=== PATIENT | female | born 1985 | race Caucasian/White ===

== ENCOUNTER 2020-06-16 09:11 | Emergency (ER) | payer OTHER ==
[~2020-06-16] VITALS: Ht 167.6 cm; Wt 65.0 kg
[~2020-06-16 09:11] MED LIST: IBUP80TA PO; PRE-TAB3 PO; TYLE650T30 PO
[2020-06-16] MEDS ORDERED: TRAM50TA2 PO (10:04)
--- NOTE | 2020-06-16 10:07 | REP ---
INDICATION: CHEST PAIN. COMPARISON: Frontal view of 02/09/2009 FINDINGS: The technique utilized in obtaining the radiograph has magnified the cardiac silhouette and accentuated the interstitial markings. The superior mediastinal structures are midline. The cardiac silhouette is unremarkable in size, shape, and position. The diaphragmatic surfaces of the lungs are regular, and the costophrenic angles are clear. The pulmonary kc are clear. The imaged osseous structures are intact. IMPRESSION: There is no acute cardiopulmonary disease. <Electronically signed by Adan Padilla > 06/16/20 [id number]
[2020-06-16 10:21] LABS: BASO # 0.1 10^3/uL (0.0-0.2); EOS # 0.1 10^3/uL (0.0-0.5); EOS % 1.6 % (0.0-3.0); HEMATOCRIT 43.9 % (36.0-47.0); HEMOGLOBIN 14.4 g/dl (12.0-15.5); LYMPH # 2.2 10^3/uL (1.5-5.0); MEAN CORPUSCULAR HEMOGLOBIN 32.8 pg (27.0-33.0); MEAN CORPUSCULAR HGB CONC 32.8 g/dl (32.0-36.5); MONO # 0.7 10^3/uL (0.0-0.8); MONO % 10.6 % (0.0-5.0); NEUTROPHILS # 3.8 10^3/uL (1.5-8.5); NEUTROPHILS % 54.4 % (36.0-66.0); PLATELET COUNT, AUTOMATED 212 10^3/uL (150-450); RED BLOOD COUNT 4.39 10^6/uL (4.00-5.40)
[2020-06-16 10:43] LABS: BLOOD UREA NITROGEN 10 MG/DL (7-18); CALCIUM LEVEL 9.3 MG/DL (8.5-10.1); CARBON DIOXIDE LEVEL 23 MEQ/L (21-32); CHLORIDE LEVEL 108 MEQ/L (98-107); CREATININE FOR GFR 0.68 MG/DL (0.55-1.30); GLOMERULAR FILTRATION RATE > 60.0 (>60); GLUCOSE, FASTING 88 MG/DL (70-100); POTASSIUM SERUM 4.3 MEQ/L (3.5-5.1); SODIUM LEVEL 138 MEQ/L (136-145)
[2020-06-16 11:10] LABS: MAGNESIUM LEVEL 1.9 MG/DL (1.8-2.4)
[2020-06-16 11:41] VITALS: BP 117/79
--- NOTE | 2020-06-17 10:12 | ECGEPIP ---
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
== END 2020-06-16 11:44 | disposition home or self-care (01) ==
LOC: M ED 09:11
DX: I49.9 Cardiac arrhythmia, unspecified (principal); F17.200 Nicotine dependence, unspecified, uncomplicated

== ENCOUNTER → 2020-07-19 | Outpatient (CLI) | payer OTHER ==
[~2020-07-19] MED LIST changes: +TRAM50TA2 PO
== END ==
LOC: M LABSMTC 12:18
PROVIDERS: ATTEND Anesthesiology
DX: Z01.812 Encounter for preprocedural laboratory examination (principal); Z20.828 Contact with and (suspected) exposure to other viral communicable diseases

== ENCOUNTER 2020-07-24 13:57 | Day surgery (SDC) | payer OTHER ==
[~2020-07-24] VITALS: Ht 160 cm; Wt 64.8 kg
[~2020-07-24 13:57] MED LIST changes: +LIDOCAINE 2% 100MG/5ML SDV (FOR ANES.) As Ordered ONE; +LR 1,000 ML IV ONE; +MIDAZOLAM INJ 2MG/2ML VIAL (J2250 PER 1MG) As Ordered ONE; +ONDANSETRON 4MG/2ML VIAL As Ordered ONE; +ceFAZolin SOD 1 GM in D5W MINI-BAG PLUS 50 ML IV ONE; +dexameTHASONE 4 MG/ML 1ML VIAL (J1100 PER 1MG) As Ordered ONE; +fentaNYL 100 MCG/2 ML INJECTION (J3010) As Ordered ONE; +propofoL 500 MG/50 ML VIAL As Ordered ONE
[2020-07-24] MEDS ORDERED: LIDOCAINE 1% MDV 20ML VIAL As Ordered ONE (15:52)
[2020-07-24] MEDS ORDERED: ceFAZolin 1GM VIAL (J0690 PER 500MG) As Ordered ONE (15:55)
[2020-07-24 17:05] VITALS: BP 115/68
--- NOTE | 2020-07-26 18:09 | RO ---
OPERATIVE NOTE DATE OF OPERATION: 07/24/2020 PREOPERATIVE DIAGNOSIS: 1. Tachycardia, unspecified. 2. Palpitations. POSTOPERATIVE DIAGNOSIS: 1. Tachycardia, unspecified. 2. Palpitations. PROCEDURE PERFORMED: Implantation of a Medtronic LINQ subcutaneous cardiac rhythm monitor. SURGEON: Yuan Gonzalez M.D. COSTUMER ASSISTANT: None. ANESTHESIA: Lidocaine 1% local/monitored anesthetic care. SPECIMENS: None. ESTIMATED BLOOD LOSS: Less than 1 mL. BLOOD PRODUCTS REPLACED: None. DRAINS: None. COMPLICATIONS: None. PROCEDURE DESCRIPTION: Patient was prepped and draped over the sternum and left anterior chest. Lidocaine 1% was used for local anesthetic. An incision was made approximately 1 cm in length using a #15 blade at the left fourth interspace about one inch lateral to the left parasternal border. The skin was partially cut through the epidermis for an additional 1 cm on the medial aspect of the incision with a 15 blade during the process of making a 1 cm incision through the skin. The extension of the incision was not full-thickness through the skin. Next, the insertion tool was placed into the incision and directed in a caudal direct in the subcutaneous tissue parallel to the left anterior chest. The insertion was rotated 180 degrees. The punch was then used to advance then implantable loop recorder into the subcutaneous tissue. The punch was then removed and then the insertion was removed, leaving the implantable loop recorder in situ. The initial R wave amplitude measured 0.34 millivolts. Next, a single 3-0 Vicryl suture was used to approximate the superficial layer with a single suture in the midportion of the incision. Next, I used a 4-0 Biosyn suture to temporarily approximate the incision line by placing the suture subcuticular. The incision was then closed using Dermabond with three layers. The Biosyn suture was then pulled through the incision line and removed entirely. The patient tolerated the procedure well without any immediate complications. The implantable loop recorder (subcutaneous cardiac rhythm monitor) was a [employer]idtr[employer] Reveal LINQ model LNQ11 which had serial number [id number]. Philip Suazo MD
== END 2020-07-24 17:15 | disposition home or self-care (01) ==
LOC: M SDC 13:57
PROVIDERS: ATTEND Internal Medicine Cardiovascular Disease
DX: R00.0 Tachycardia, unspecified (principal); R00.2 Palpitations; I45.19 Other right bundle-branch block; F17.210 Nicotine dependence, cigarettes, uncomplicated; L40.9 Psoriasis, unspecified; Z86.59 Personal history of other mental and behavioral disorders; Z98.51 Tubal ligation status
CPT/HCPCS: 33285; C1764; J0690; J1100; J2250; J2405; J3010

== ENCOUNTER → 2020-09-12 | Outpatient (REF) | payer OTHER ==
[~2020-09-12] MED LIST changes: -LIDOCAINE 2% 100MG/5ML SDV (FOR ANES.) As Ordered ONE; -LR 1,000 ML IV ONE; -MIDAZOLAM INJ 2MG/2ML VIAL (J2250 PER 1MG) As Ordered ONE; -ONDANSETRON 4MG/2ML VIAL As Ordered ONE; -ceFAZolin SOD 1 GM in D5W MINI-BAG PLUS 50 ML IV ONE; -dexameTHASONE 4 MG/ML 1ML VIAL (J1100 PER 1MG) As Ordered ONE; -fentaNYL 100 MCG/2 ML INJECTION (J3010) As Ordered ONE; -propofoL 500 MG/50 ML VIAL As Ordered ONE
== END ==
LOC: M LAB REF 16:13
PROVIDERS: ATTEND Physician Assistant
DX: J02.9 Acute pharyngitis, unspecified (principal)

== ENCOUNTER → 2021-05-05 | Outpatient (REF) | payer OTHER ==
[2021-05-05 18:27] LABS: RSV AMPLIFICATION NEGATIVE (NEGATIVE)
== END ==
LOC: M LAB REF 16:32
PROVIDERS: ATTEND Physician Assistant Medical
DX: B34.9 Viral infection, unspecified (principal)

== ENCOUNTER → 2022-06-09 | Outpatient (REF) | LOC: M LAB 14:51 | PROVIDERS: ATTEND Nurse Practitioner Adult Health | DX: Z11.52 Encounter for screening for COVID-19 (principal) ==

== ENCOUNTER → 2022-07-24 | Outpatient (REF) | LOC: M EMP 08:56 | PROVIDERS: ATTEND Family Medicine | DX: Z53.20 Procedure and treatment not carried out because of patient's decision for unspecified reasons (principal) ==

== ENCOUNTER → 2023-04-21 | Outpatient (REF) | LOC: M EMP 10:30 | PROVIDERS: ATTEND Family Medicine | DX: Z11.52 Encounter for screening for COVID-19 (principal) ==

== ENCOUNTER → 2023-07-02 | Outpatient (REF) | LOC: M EMP 09:52 | PROVIDERS: ATTEND Family Medicine | DX: Z11.52 Encounter for screening for COVID-19 (principal) ==

== ENCOUNTER → 2023-08-09 | Outpatient (REF) | LOC: M EMP 09:39 | PROVIDERS: ATTEND Family Medicine | DX: Z11.52 Encounter for screening for COVID-19 (principal) ==

== ENCOUNTER 2023-11-07 19:42 | Emergency (ER) | payer OTHER ==
[~2023-11-07] VITALS: Ht 160 cm; Wt 62.8 kg
[2023-11-07 19:43] VITALS: TEMP 98.6
[2023-11-07] MEDS: KETOROLAC 30 MG/ML 1ML VIAL IM ONE (20:10)
[2023-11-07] MEDS: LIDOCAINE 5% (LIDODERM) PATCH TD ONE (20:10)
[2023-11-07] MEDS: ONDANSETRON 4MG ORAL DISINTEGRATING TAB PO ONE (20:10)
[2023-11-07] MEDS: methocarbamoL 750 MG TAB PO ONE (20:10)
[2023-11-07] MEDS ORDERED: METH-1165 PO (21:13)
[2023-11-07] MEDS ORDERED: LIDO5DIS41 TD (21:13)
[2023-11-07] MEDS: predniSONE 20 MG TAB PO ONE (21:13)
[2023-11-07] MEDS ORDERED: DICL75TA PO (21:13)
[2023-11-07] MEDS ORDERED: PRED20TA PO (21:13)
[2023-11-07 21:23] VITALS: BP 166/78; O2SAT 98
== END 2023-11-07 21:24 | disposition home or self-care (01) ==
LOC: M ED 19:42
DX: M25.552 Pain in left hip (principal); F41.9 Anxiety disorder, unspecified; F17.210 Nicotine dependence, cigarettes, uncomplicated; F12.10 Cannabis abuse, uncomplicated; F10.10 Alcohol abuse, uncomplicated; Z79.899 Other long term (current) drug therapy; Z79.52 Long term (current) use of systemic steroids
CPT/HCPCS: 72110; 73502; 96372; 99283; J1885; J7512

== ENCOUNTER → 2024-03-24 | Outpatient (REF) ==
[~2024-03-24] MED LIST changes: +DICL75TA PO; +LIDO5DIS41 TD; +METH-1165 PO; +PRED20TA PO
== END ==
LOC: M EMP 13:46
PROVIDERS: ATTEND Family Medicine
DX: Z11.52 Encounter for screening for COVID-19 (principal)

== ENCOUNTER → 2024-05-08 | Outpatient (REF) | LOC: M EMP 08:26 | PROVIDERS: ATTEND Family Medicine | DX: Z11.52 Encounter for screening for COVID-19 (principal) ==

== ENCOUNTER → 2024-06-05 | Outpatient (REF) | LOC: M EMP 09:09 | PROVIDERS: ATTEND Family Medicine | DX: Z11.52 Encounter for screening for COVID-19 (principal) ==

== ENCOUNTER → 2024-07-27 | Outpatient (REF) | LOC: M EMP 08:02 | PROVIDERS: ATTEND Family Medicine | DX: Z01.89 Encounter for other specified special examinations (principal) ==

== ENCOUNTER 2025-03-18 19:09 | Emergency (ER) | payer OTHER, SELFPAY ==
[~2025-03-18] VITALS: Ht 160 cm; Wt 68.3 kg
[~2025-03-18 19:09] MED LIST changes: +LIDO1ADH93 TD; -LIDO5DIS41 TD
[2025-03-19] MEDS: IBUPROFEN 800 MG TAB PO ONE (01:15)
[2025-03-19] MEDS ORDERED: NAPR-837 PO (02:35)
[2025-03-19 02:47] VITALS: BP 137/64; TEMP 97.6; O2SAT 98
== END 2025-03-19 03:00 | disposition home or self-care (01) ==
LOC: M ED 19:09
DX: M25.421 Effusion, right elbow (principal); F17.210 Nicotine dependence, cigarettes, uncomplicated; Z79.52 Long term (current) use of systemic steroids; Z79.899 Other long term (current) drug therapy